=== PATIENT | female | born 1960 | race Two or more races ===

== ENCOUNTER 2020-05-01 08:04 | Outpatient (CLI) | payer OTHER | END 2020-05-01 18:00 | disposition home or self-care (01) | LOC: LAB 08:04 | DX: R05 Cough (principal); Z20.828 Contact with and (suspected) exposure to other viral communicable diseases; Z11.59 Encounter for screening for other viral diseases ==

== ENCOUNTER 2020-05-18 15:17 | Outpatient (CLI) | payer OTHER | END 2020-05-18 15:29 | disposition home or self-care (01) | LOC: LAB 15:17 | DX: Z20.828 Contact with and (suspected) exposure to other viral communicable diseases (principal) ==

== ENCOUNTER 2020-12-18 12:26 | Outpatient (CLI) | payer OTHER | END 2020-12-18 15:00 | disposition home or self-care (01) | LOC: LAB 12:26 | DX: Z11.52 Encounter for screening for COVID-19 (principal); Z03.818 Encounter for observation for suspected exposure to other biological agents ruled out ==

== ENCOUNTER 2021-05-07 09:01 | Outpatient (CLI) | payer OTHER | END 2021-05-07 09:43 | disposition home or self-care (01) | LOC: LAB 09:01 | DX: Z03.818 Encounter for observation for suspected exposure to other biological agents ruled out (principal) ==

== ENCOUNTER 2021-07-24 08:39 | Outpatient (CLI) | payer OTHER | END 2021-07-24 08:42 | disposition home or self-care (01) | LOC: SONOGRAMA 08:39 | DX: K80.00 Calculus of gallbladder with acute cholecystitis without obstruction (principal) ==